=== PATIENT | male | born 1995 | race Caucasian/White ===

== ENCOUNTER 2017-10-25 00:45 | Emergency (ER) | payer SELFPAY ==
[~2017-10-25] VITALS: Ht 180.3 cm; Wt 83.6 kg
[2017-10-25 00:46] VITALS: BP 133/88
[2017-10-25] MEDS ORDERED: LIDOCAINE 1%, 20ML SQ ONE (01:30)
== END 2017-10-25 03:38 | disposition home or self-care (01) ==
LOC: ED 02:49
DX: S01.81XA Laceration without foreign body of other part of head, initial encounter (principal); X58.XXXA Exposure to other specified factors, initial encounter; Y93.89 Activity, other specified; Y92.322 Soccer field as the place of occurrence of the external cause; Y99.8 Other external cause status
CPT/HCPCS: 12051; 99284